=== PATIENT | female | born 1965 | race Two or more races ===

== ENCOUNTER 2019-04-13 08:09 | Day surgery (SDC) | payer OTHER ==
[2019-03-29 12:58] VITALS: BMI 34.7
[2019-04-13] MEDS ORDERED: ACETAMINOPHEN 325 MG TABLET (FP) PO PRN (08:45)
[2019-04-13] MEDS ORDERED: IBUPROFEN 800 MG/8 ML IJ IVPB PRN (08:45)
--- NOTE | 2019-04-13 08:45 | HP ---
History & Physical Update - History History: No Change - Physical Physical: No Change - Assessment Assessment: No Change - Plan Plan: No Change (Agree with H&P from 04/08/19 - plan for laparoscopic right ovarian cystectomy, possible oophorectomy)
[2019-04-13] MEDS ORDERED: BUPIVACAINE HCL/PF 0.5% (5 MG/ML) 30 ML VIAL IJ ONE ×3 (09:13→10:56)
[2019-04-13] MEDS ORDERED: ONDANSETRON 4 MG/2 ML VIAL IVPUSH PRN (09:21)
[2019-04-13] MEDS ORDERED: LACTATED RINGERS SOLUTION 1,000 ML IV SCH (09:30)
[2019-04-13] MEDS ORDERED: PROPOFOL 20 ML ONE (09:50)
[2019-04-13] MEDS ORDERED: MIDAZOLAM HCL 2 MG/2 ML SINGLE DOSE VIAL ONE ×2 (09:50)
[2019-04-13] MEDS ORDERED: ROCURONIUM BROMIDE 50 MG/5 ML SYRINGE ONE (09:50)
[2019-04-13] MEDS ORDERED: NEOSTIGMINE METHYLSULFATE 0.5 MG/ML - 10 ML MDV ONE (11:00)
--- NOTE | 2019-04-13 11:10 | OP ---
Operative Note - Note: Operative Date: 04/13/19 Pre-Operative Diagnosis: right ovarian cyst Operation: laparoscopic right ovarian cystectomy Findings: adhesions from colon to anterior abdominal wall at prior cholecystectomy site Post-Operative Diagnosis: Same as Pre-op Surgeon: Mayelin Wallace Vp Analysis: Arianne Barba Anesthesiologist/SUPERVISOR LABORATORY: Giulia Mckeon MD Anesthesia: General Specimens Removed: right ovarian cyst wall Estimated Blood Loss (mls): 5 Operative Report Dictated: Yes
[2019-04-13 15:31] VITALS: TEMP 97.4
[2019-04-13 15:42] VITALS: BP 104/65; PULSE 77
--- NOTE | 2019-04-13 20:00 | OP ---
DATE OF OPERATION: 04/13/2019 PREOPERATIVE DIAGNOSIS: Right ovarian cyst. POSTOPERATIVE DIAGNOSIS: Right para-ovarian cyst. PROCEDURE: Laparoscopic right ovarian cystectomy. SURGEON: Mayelin Wallace D.O. SIGNING AGENT: Jeronimo Bedolla ANESTHESIOLOGIST: Giulia Mckeon M.D. ANESTHESIA: General. SPECIMENS REMOVED: Right ovarian cyst wall COMPLICATIONS: None. DISPOSITION: Stable to PACU. FINDINGS: Included a large right ovarian cyst, adhesions from the colon to the anterior abdominal wall from prior cholecystectomy. BRIEF HISTORY AND PROCEDURE: The patient is a 54-year-old female who was seen in the office with complaints of abdominal pain. Upon imaging studies, was found to have a very large right ovarian cyst. Blood test and ultrasound were done which revealed likely benign process. Patient was counseled on her options and elected to undergo a laparoscopic right ovarian cystectomy. Consents for the procedure were signed in the office and reconfirmed upon admission. The patient was taken back to the operating room, given general anesthesia, placed in the dorsal lithotomy position. A Fernandez catheter was placed under sterile conditions, and a hard timeout was performed. A 5-mm skin incision was created in the umbilicus, and a Veress needle was placed intraabdominally. The abdomen was insufflated with CO2 gas. A 5-mm trocar was then placed into the umbilical incision, and the camera was inserted. After confirmation of intracranial placement, two bilateral 5-mm lower quadrant ports were placed, one on the left and one on the right, under direct visualization. Inspection of the abdomen and pelvis revealed a large right para-ovarian simple appearing cyst, and adhesions from the colon to the anterior abdominal wall at the site of her prior incision for her gallbladder removal were noted. Attention was then turned to the right ovary which was elevated. An incision was created on the peritoneum covering the ovary, and the cyst wall was easily identified. The cyst wall was identified and grasped and blunty dissected away from the peritoneal tissue. During this the cyst was incidentally ruptured and clear fluid was noted. The fluid was suction irrigated from the pelvis and the cyst wall was easily bluntly dissected away from its attachment to the peritoneum. The cyst wall was removed from the left lower quadrant port under direct visualization intact. A smaller additional periovarian cyst was appreciated, which was approximately 1 cm in size, which was drained at this point, again clear fluid was noted. The cyst wall was removed from the LLQ trocar under direct visualization. Copious irrigation of the pelvis was completed, hemostasis was again noted at the surgical site. The abdomen was desufflated, the trocars were removed, the incisions were reapproximated using 4 -0 Biosyn and Dermabond skin glue. The patient was awoken from anesthesia, recovered in stable condition in the PACU at the time of this dictation. Sponge, needle and instrument counts were reported correct at the end of the case. MAYELIN WALLACE DO /[id number] MTDD
--- NOTE | 2019-04-18 17:40 | PATH ---
Surgical Pathology Report Patient Name: TANJA ORTIZ [facility]. Rec. #: [id number] /Age/Gender: 1965 (Age: 54) / F Account: [id number] Location: [facility] SURGICAL Taken: 04/13/2019 Received: 04/13/2019 Reported: 04/18/2019 Physicians: Mayelin Wallace M.D. Specimen(s) Received OVARIAN CYST WALL Clinical History Right ovarian cyst Final Diagnosis OVARIAN CYST WALL, RIGHT, LAPAROSCOPIC CYSTECTOMY: SEROUS CYSTADENOMA. Electronically Signed Luiza Garcia M.D. Gross Description Received in formalin labeled "ovarian cyst wall right," is a 6.0 x 2.8 x 1.0 cm tompkins cystic structure with a focal defect. The outer surface is smooth. The inner lining is smooth. No excrescences are identified. No normal ovarian parenchyma is identified. Cotton Ball Bagger sections are submitted in 3 cassettes. /04/14/2019 saudi/04/14/2019
== END 2019-04-13 14:35 | disposition home or self-care (01) ==
LOC: JASU-SURG 08:09
PROVIDERS: ATTEND Obstetrics & Gynecology
PROC: 0UB04ZZ Excision of Right Ovary, Percutaneous Endoscopic Approach (ICD-10-PCS; principal; 2019-04-13 10:00)
DX: N83.201 Unspecified ovarian cyst, right side (principal); K66.0 Peritoneal adhesions (postprocedural) (postinfection)
CPT/HCPCS: 88307-TC; 94760